=== PATIENT | male | born 1955 | race Two or more races ===

== ENCOUNTER 2022-04-30 22:23 | Inpatient (IN) | payer OTHER ==
[~2022-04-30] VITALS: Ht 165.1 cm; Wt 75.2 kg
[2022-04-30] MEDS ORDERED: SODIUM CHLORIDE 0.9% 1,000 ML IV ONE (23:30)
[2022-04-30] MEDS ORDERED: MORPHINE SULFATE 4 MG/ML SYR/VIAL IV ONE (23:30)
[2022-04-30] MEDS ORDERED: PIPERACILLIN-TAZO 4.5GM 100 ML IV ONE (23:30)
[2022-05-01] MEDS ORDERED: IOHEXOL 300 MG/ML 100ML BOTTLE IJ ONE (00:37)
[2022-05-01 01:47] LABS: Basophils # (auto) 0 10 ^3/uL (0-0.2); Eosinophils # (auto) 0 10 ^3/uL (0-0.8); Hemoglobin 9.1 g/dL (13.5-17.5); Lymphocytes # (auto) 0.1 10 ^3/uL (0.4-5.4); Mean Corpuscular Volume 77.2 fL (80.0-100.0)
[2022-05-01 01:50] LABS: Basophils % (auto) 0.4 % (0.0-2.0); Eosinophils % (auto) 0.1 % (0.0-7.0); Hematocrit 28.4 % (41.0-53.0); Lymphocytes % (auto) 1.3 % (10.0-50.0); Mean Corpuscular Hemoglobin 24.7 pg (28.0-32.0); Mean Corpuscular Hgb Conc. 31.9 g/dL (32.0-36.0); Monocytes # (auto) 0.5 10 ^3/uL (0-1.3); Monocytes % (auto) 6.3 % (0.0-12.0); Neutrophils # (auto) 6.7 10 ^3/uL (1.6-8.6); Neutrophils % (auto) 91.9 % (37.0-80.0); Red Blood Cells 3.68 10^6/uL (4.5-5.90); Red Cell Distribution Width 19.1 % (11.8-14.3); White Blood Cell 7.3 10^3/uL (4.4-10.8)
[2022-05-01 02:02] LABS: BUN/Creatinine Ratio 25.3; Calcium 7.5 mg/dL (8.5-10.1); Potassium 4.5 mmol/L (3.5-5.1)
[2022-05-01 02:04] LABS: Bilirubin, Total 1.6 mg/dL (0.2-1.0); Total Protein 6.7 g/dL (6.4-8.2)
[2022-05-01 02:06] LABS: Lactic Acid w/Reflex 3.3 mmol/L (0.4-2.0)
[2022-05-01 02:14] LABS: Urine Bacteria NONE SEEN /hpf (None Seen); Urine Blood Negative /uL (Negative); Urine Specific Gravity 1.017 (1.001-1.035); Urine WBC <1 /hpf (0 - 3)
[2022-05-01] MEDS ORDERED: SODIUM CHLORIDE 0.9% 1,000 ML IV ONE ×2 (05:15→12:00)
[2022-05-01] MEDS ORDERED: IBUPROFEN 600 MG TAB PO PRN (07:15)
[2022-05-01] MEDS ORDERED: TEMAZEPAM 15 MG CAP PO PRN (07:15)
[2022-05-01] MEDS ORDERED: SODIUM CHLORIDE 0.9% 1,000 ML IV SCH (07:15)
[2022-05-01] MEDS ORDERED: ALBUMIN 25% 100 ML IV ONE (07:15)
[2022-05-01] MEDS ORDERED: DOCUSATE SOD 100 MG CAP PO PRN (07:15)
[2022-05-01] MEDS ORDERED: DEXTROSE (50%) 50ML SYRG IV PRN (07:15)
[2022-05-01 07:57] LABS: Albumin 1.6 g/dL (3.4-5.0); Calcium 6.9 mg/dL (8.5-10.1); Potassium 5.1 mmol/L (3.5-5.1)
[2022-05-01 08:01] LABS: BUN/Creatinine Ratio 30.3; Bilirubin, Total 1.4 mg/dL (0.2-1.0); Total Protein 5.5 g/dL (6.4-8.2)
[2022-05-01 08:20] LABS: Basophils # (auto) 0 10 ^3/uL (0-0.2); Basophils % (auto) 0.3 % (0.0-2.0); Eosinophils # (auto) 0 10 ^3/uL (0-0.8); Hemoglobin 7.5 g/dL (13.5-17.5); Mean Corpuscular Volume 75.9 fL (80.0-100.0); Monocytes # (auto) 0.6 10 ^3/uL (0-1.3)
[2022-05-01 08:22] LABS: Eosinophils % (auto) 0.4 % (0.0-7.0); Hematocrit 23.6 % (41.0-53.0); Lymphocytes # (auto) 0.2 10 ^3/uL (0.4-5.4); Lymphocytes % (auto) 2.7 % (10.0-50.0); Mean Corpuscular Hemoglobin 24.1 pg (28.0-32.0); Mean Corpuscular Hgb Conc. 31.7 g/dL (32.0-36.0); Monocytes % (auto) 11.5 % (0.0-12.0); Neutrophils # (auto) 4.7 10 ^3/uL (1.6-8.6); Neutrophils % (auto) 85.1 % (37.0-80.0); Red Blood Cells 3.11 10^6/uL (4.5-5.90); White Blood Cell 5.5 10^3/uL (4.4-10.8)
[2022-05-01] MEDS: MORPHINE SULFATE INJ 2 MG/ml SYRG IV PRN ×3 (09:09→22:04)
[2022-05-01] MEDS ORDERED: OXYC-904 PO (10:07)
[2022-05-01] MEDS ORDERED: OMEP-445 PO (10:07)
[2022-05-01] MEDS ORDERED: FIN5T PO (10:07)
[2022-05-01] MEDS ORDERED: AMIL5TAB24 PO (10:07)
[2022-05-01] MEDS ORDERED: TRAZ50TA2 PO (10:07)
[2022-05-01] MEDS ORDERED: TAMS1CAP25 PO (10:07)
[2022-05-01] MEDS ORDERED: FENT50DI2 TOP (10:07)
[2022-05-01] MEDS ORDERED: ONDA-188 PO (10:07)
[2022-05-01] MEDS: FUROSEMIDE 20 MG/2 ML VIAL IV SCH (11:03)
[2022-05-01] MEDS: FAMOTIDINE (10MG/ML) 2ML VL IV SCH ×2 (11:04→22:02)
[2022-05-01] MEDS: ACCU-CHEK COMFORT CURVE STRIP VI SCH ×2 (12:13→18:52)
[2022-05-01] MEDS: InsuLIN REG 1unit/0.01ml Soln (100units/ml) SC SCH ×3 (12:17→23:57)
[2022-05-01] MEDS: fentaNYL 50MCG/HR 50 MCG/HR PAT TD SCH (12:30)
[2022-05-01] MEDS: PIPERACILLIN-TAZOB 3.375GM 100 ML IV SCH ×2 (14:56→22:02)
[2022-05-01] MEDS: TAMSULOSIN HYDROCHLORIDE 0.4 MG CAP PO SCH (18:46)
[2022-05-01 19:01] VITALS: BP 145/60
[2022-05-01 20:00] VITALS: BP 132/68
[2022-05-01 21:34] VITALS: BP 145/60
[2022-05-01] MEDS: ONDANSETRON HCL 4 MG/2 ML VIAL IV PRN (22:05)
[2022-05-02] MEDS: MORPHINE SULFATE INJ 2 MG/ml SYRG IV PRN ×3 (03:41→22:24)
[2022-05-02] MEDS: ONDANSETRON HCL 4 MG/2 ML VIAL IV PRN (03:42)
[2022-05-02 04:42] VITALS: BP 125/61
[2022-05-02 05:11] LABS: Basophils # (auto) 0 10 ^3/uL (0-0.2); Basophils % (auto) 0.3 % (0.0-2.0); Eosinophils # (auto) 0 10 ^3/uL (0-0.8); Eosinophils % (auto) 0.8 % (0.0-7.0); Hemoglobin 7.4 g/dL (13.5-17.5); Lymphocytes # (auto) 0.1 10 ^3/uL (0.4-5.4); Mean Corpuscular Hgb Conc. 32.3 g/dL (32.0-36.0); Monocytes # (auto) 0.5 10 ^3/uL (0-1.3)
[2022-05-02 05:13] LABS: Lymphocytes % (auto) 2.7 % (10.0-50.0); Mean Corpuscular Hemoglobin 24.5 pg (28.0-32.0); Mean Corpuscular Volume 75.9 fL (80.0-100.0); Monocytes % (auto) 11.4 % (0.0-12.0); Neutrophils # (auto) 3.6 10 ^3/uL (1.6-8.6); Neutrophils % (auto) 84.8 % (37.0-80.0); Red Blood Cells 3.03 10^6/uL (4.5-5.90); Red Cell Distribution Width 18.7 % (11.8-14.3); White Blood Cell 4.2 10^3/uL (4.4-10.8)
[2022-05-02 05:23] LABS: Albumin 1.9 g/dL (3.4-5.0); Calcium 7.3 mg/dL (8.5-10.1); Potassium 4.4 mmol/L (3.5-5.1)
[2022-05-02 05:27] LABS: BUN/Creatinine Ratio 31.9; Bilirubin, Total 1.3 mg/dL (0.2-1.0); Total Protein 5.9 g/dL (6.4-8.2)
[2022-05-02] MEDS: InsuLIN REG 1unit/0.01ml Soln (100units/ml) SC SCH ×4 (06:30→23:48)
[2022-05-02] MEDS: PIPERACILLIN-TAZOB 3.375GM 100 ML IV SCH ×3 (06:31→22:23)
[2022-05-02] MEDS: ACCU-CHEK COMFORT CURVE STRIP VI SCH ×5 (06:31→23:45)
[2022-05-02 08:00] VITALS: BP 142/64
[2022-05-02] MEDS ORDERED: VANCOMYCIN 1GM/250ML 250 ML IV ONE (08:30)
[2022-05-02] MEDS ORDERED: VANCOMYCIN PER PHARMACY 0 MG IV SCH (08:30)
[2022-05-02 09:03] VITALS: BP 142/64
[2022-05-02] MEDS: FAMOTIDINE (10MG/ML) 2ML VL IV SCH ×2 (09:30→22:22)
[2022-05-02] MEDS: FUROSEMIDE 20 MG/2 ML VIAL IV SCH (09:31)
[2022-05-02 12:30] VITALS: BP 138/70
[2022-05-02] MEDS: BACLOFEN 10 MG TAB PO SCH ×2 (14:06→22:23)
[2022-05-02 16:45] VITALS: BP 126/73
[2022-05-02] MEDS: TAMSULOSIN HYDROCHLORIDE 0.4 MG CAP PO SCH (17:17)
[2022-05-02] MEDS: VANCOMYCIN 1GM/250ML 250 ML IV SCH (20:53)
[2022-05-02 21:39] VITALS: BP 120/64
[2022-05-03 05:29] LABS: Hematocrit 25.9 % (41.0-53.0); Hemoglobin 8.3 g/dL (13.5-17.5); Mean Corpuscular Hemoglobin 24.5 pg (28.0-32.0); Mean Corpuscular Hgb Conc. 32.2 g/dL (32.0-36.0); Mean Corpuscular Volume 76.3 fL (80.0-100.0); Red Blood Cells 3.39 10^6/uL (4.5-5.90); Red Cell Distribution Width 19.3 % (11.8-14.3); White Blood Cell 4.7 10^3/uL (4.4-10.8)
[2022-05-03] MEDS: BACLOFEN 10 MG TAB PO SCH ×3 (05:35→22:00)
[2022-05-03] MEDS: ACCU-CHEK COMFORT CURVE STRIP VI SCH ×3 (05:35→17:50)
[2022-05-03] MEDS: PIPERACILLIN-TAZOB 3.375GM 100 ML IV SCH ×2 (05:35→16:12)
[2022-05-03] MEDS: InsuLIN REG 1unit/0.01ml Soln (100units/ml) SC SCH ×3 (05:38→17:53)
[2022-05-03 05:41] LABS: Potassium 4.1 mmol/L (3.5-5.1)
[2022-05-03] MEDS: MORPHINE SULFATE INJ 2 MG/ml SYRG IV PRN ×2 (05:41→21:05)
[2022-05-03 05:46] LABS: Band Neutrophils % (manual) 0; Basophils % (manual) 0 (0.0-2.0); Blast Cells 0; Metamyelocytes % 0; Myelocytes % 0; Promyelocytes % 0; Reactive Lymphocytes 0
[2022-05-03 05:50] LABS: BUN/Creatinine Ratio 34.3; Calcium 7.6 mg/dL (8.5-10.1)
[2022-05-03 06:00] LABS: Bilirubin, Total 1.7 mg/dL (0.2-1.0); Total Protein 6.3 g/dL (6.4-8.2)
[2022-05-03 07:21] LABS: Eosinophils % (manual) 1 (0-7); Lymphocytes % (manual) 4 (10.0-50.0); Monocytes % (manual) 7 (0-12)
[2022-05-03 08:00] VITALS: BP 137/68
[2022-05-03 09:00] VITALS: BP 137/68
[2022-05-03] MEDS: FAMOTIDINE (10MG/ML) 2ML VL IV SCH ×2 (09:39→22:14)
[2022-05-03] MEDS: VANCOMYCIN 1GM/250ML 250 ML IV SCH ×2 (09:39→22:15)
[2022-05-03] MEDS: FUROSEMIDE 20 MG/2 ML VIAL IV SCH (09:41)
[2022-05-03 13:00] VITALS: BP 129/55
[2022-05-03] MEDS ORDERED: LORazepam 2MG/ML-1ML VIAL IV ONE (13:15)
[2022-05-03] MEDS: ONDANSETRON HCL 4 MG/2 ML VIAL IV PRN ×2 (13:57→20:51)
[2022-05-03] MEDS ORDERED: FUROSEMIDE 40 MG/4 ML VIAL IV ONE (16:45)
[2022-05-03 16:46] VITALS: BP 133/45
[2022-05-03] MEDS ORDERED: FUROSEMIDE 40 MG/4 ML VIAL ONE (16:49)
[2022-05-03] MEDS: TAMSULOSIN HYDROCHLORIDE 0.4 MG CAP PO SCH (18:00)
[2022-05-03] MEDS ORDERED: SODIUM CHLORIDE 0.9% 1,000 ML IV ONE (18:45)
[2022-05-03 19:23] LABS: Eosinophils # (auto) 0 10 ^3/uL (0-0.8); Hemoglobin 8.4 g/dL (13.5-17.5); Lymphocytes # (auto) 0.1 10 ^3/uL (0.4-5.4); Lymphocytes % (auto) 1.6 % (10.0-50.0); Monocytes # (auto) 0.3 10 ^3/uL (0-1.3)
[2022-05-03 19:27] LABS: Basophils # (auto) 0 10 ^3/uL (0-0.2); Basophils % (auto) 0.7 % (0.0-2.0); Eosinophils % (auto) 0.1 % (0.0-7.0); Hematocrit 27.1 % (41.0-53.0); Mean Corpuscular Hemoglobin 24.3 pg (28.0-32.0); Mean Corpuscular Volume 78.3 fL (80.0-100.0); Monocytes % (auto) 5.1 % (0.0-12.0); Neutrophils # (auto) 5.7 10 ^3/uL (1.6-8.6); Neutrophils % (auto) 92.5 % (37.0-80.0); Red Blood Cells 3.46 10^6/uL (4.5-5.90); White Blood Cell 6.2 10^3/uL (4.4-10.8)
[2022-05-03 19:32] LABS: Red Cell Distribution Width 20.1 % (11.8-14.3)
[2022-05-03 19:40] LABS: Albumin 2.1 g/dL (3.4-5.0); Calcium 7.8 mg/dL (8.5-10.1); Potassium 3.7 mmol/L (3.5-5.1)
[2022-05-03 19:43] LABS: BUN/Creatinine Ratio 26.2; Bilirubin, Total 1.8 mg/dL (0.2-1.0); Total Protein 6.7 g/dL (6.4-8.2)
[2022-05-03 20:00] VITALS: BP 156/89
[2022-05-03 20:19] LABS: Lactic Acid w/Reflex 2.1 mmol/L (0.4-2.0)
[2022-05-04] VITALS (17 sets, daily range): BP systolic 120–148; BP diastolic 51–66
[2022-05-04] MEDS ORDERED: KETOROLAC TROMETH 30 MG/ML 1ML VIAL IV ONE
[2022-05-04] MEDS: ACCU-CHEK COMFORT CURVE STRIP VI SCH ×4 (00:39→18:09)
[2022-05-04] MEDS: InsuLIN REG 1unit/0.01ml Soln (100units/ml) SC SCH ×4 (00:40→18:11)
[2022-05-04] MEDS: PIPERACILLIN-TAZOB 3.375GM 100 ML IV SCH ×2 (01:12→06:00)
[2022-05-04 04:52] LABS: Basophils # (auto) 0 10 ^3/uL (0-0.2); Basophils % (auto) 0.2 % (0.0-2.0); Eosinophils # (auto) 0 10 ^3/uL (0-0.8); Eosinophils % (auto) 0.1 % (0.0-7.0); Hemoglobin 7.8 g/dL (13.5-17.5); Lymphocytes # (auto) 0.1 10 ^3/uL (0.4-5.4); Monocytes # (auto) 0.5 10 ^3/uL (0-1.3); Nucleated Red Blood Cells % 0.1 %
[2022-05-04] MEDS: BACLOFEN 10 MG TAB PO SCH ×3 (04:53→21:40)
[2022-05-04 04:54] LABS: Hematocrit 25.1 % (41.0-53.0); Lymphocytes % (auto) 2.4 % (10.0-50.0); Mean Corpuscular Hemoglobin 24.3 pg (28.0-32.0); Mean Corpuscular Hgb Conc. 30.9 g/dL (32.0-36.0); Mean Corpuscular Volume 78.6 fL (80.0-100.0); Monocytes % (auto) 11.3 % (0.0-12.0); Neutrophils # (auto) 3.5 10 ^3/uL (1.6-8.6); Red Cell Distribution Width 19.7 % (11.8-14.3)
[2022-05-04 05:10] LABS: Albumin 1.9 g/dL (3.4-5.0); Potassium 3.8 mmol/L (3.5-5.1)
[2022-05-04 05:16] LABS: BUN/Creatinine Ratio 31.6; Bilirubin, Total 1.5 mg/dL (0.2-1.0); Calcium 7.3 mg/dL (8.5-10.1); Total Protein 5.7 g/dL (6.4-8.2)
[2022-05-04] MEDS: VANCOMYCIN 1GM/250ML 250 ML IV SCH ×2 (09:42→20:30)
[2022-05-04] MEDS: FUROSEMIDE 20 MG/2 ML VIAL IV SCH (09:42)
[2022-05-04] MEDS: FAMOTIDINE (10MG/ML) 2ML VL IV SCH ×2 (09:42→21:36)
[2022-05-04] MEDS ORDERED: cefTRIAXone 1GM/50ML D5W 50 ML IV ONE (10:30)
[2022-05-04] MEDS ORDERED: TPN PER PHARMACY 0 ML IV SCH ×2 (10:30→20:00)
[2022-05-04] MEDS ORDERED: DEXTROSE (50%) 50ML SYRG IV PRN (10:45)
[2022-05-04] MEDS ORDERED: CLINIMIX PER PHARMACY 0 ML IV SCH (10:45)
[2022-05-04 12:06] LABS: Phosphorus 2.4 mg/dL (2.5-4.90)
[2022-05-04] MEDS ORDERED: AMINO ACID INFUSION IN D10W 1,000 ML IV NR (12:45)
[2022-05-04] MEDS: ONDANSETRON HCL 4 MG/2 ML VIAL IV PRN (12:55)
[2022-05-04] MEDS: fentaNYL 50MCG/HR 50 MCG/HR PAT TD SCH (13:10)
[2022-05-04] MEDS ORDERED: SODIUM PHOSP 20MEQ(15MMOL) IN NS 100 ML IV ONE (13:45)
[2022-05-04] MEDS: TAMSULOSIN HYDROCHLORIDE 0.4 MG CAP PO SCH (17:57)
[2022-05-04] MEDS: MORPHINE SULFATE INJ 2 MG/ml SYRG IV PRN (18:14)
[2022-05-04 19:13] LABS: Hemoglobin 7.8 g/dL (13.5-17.5)
[2022-05-04] MEDS ORDERED: TPN PER PHARMACY IV NR ×12 (20:00)
[2022-05-04] MEDS: INSULIN LANTUS (GLARGINE) 1 /0.01ml (100units/ml) SC SCH (23:00)
[2022-05-05] VITALS (14 sets, daily range): BP systolic 118–135; BP diastolic 36–65
[2022-05-05] MEDS: InsuLIN REG 1unit/0.01ml Soln (100units/ml) SC SCH ×4 (00:25→19:06)
[2022-05-05] MEDS: ACCU-CHEK COMFORT CURVE STRIP VI SCH ×4 (00:26→18:52)
[2022-05-05] MEDS: MORPHINE SULFATE INJ 2 MG/ml SYRG IV PRN ×4 (00:37→22:08)
[2022-05-05] MEDS: BACLOFEN 10 MG TAB PO SCH ×3 (06:00→22:00)
[2022-05-05 06:04] LABS: Albumin 1.8 g/dL (3.4-5.0); BUN/Creatinine Ratio 43.5; Calcium 7.3 mg/dL (8.5-10.1); Magnesium 2.2 mg/dL (1.6-2.6); Potassium 3.3 mmol/L (3.5-5.1)
[2022-05-05 06:06] LABS: Phosphorus 2.9 mg/dL (2.5-4.90); Total Protein 5.9 g/dL (6.4-8.2)
[2022-05-05] MEDS: VANCOMYCIN 1GM/250ML 250 ML IV SCH ×2 (06:10→17:27)
[2022-05-05 06:34] LABS: Basophils # (auto) 0 10 ^3/uL (0-0.2); Eosinophils # (auto) 0.1 10 ^3/uL (0-0.8); Eosinophils % (auto) 1.7 % (0.0-7.0); Hemoglobin 7.6 g/dL (13.5-17.5); Lymphocytes # (auto) 0.2 10 ^3/uL (0.4-5.4); Mean Corpuscular Hgb Conc. 32.8 g/dL (32.0-36.0); Monocytes # (auto) 0.3 10 ^3/uL (0-1.3); Neutrophils # (auto) 3.3 10 ^3/uL (1.6-8.6)
[2022-05-05 06:36] LABS: Basophils % (auto) 0.1 % (0.0-2.0); Hematocrit 23.2 % (41.0-53.0); Mean Corpuscular Hemoglobin 24.9 pg (28.0-32.0); Monocytes % (auto) 8.5 % (0.0-12.0); Neutrophils % (auto) 85.7 % (37.0-80.0); Nucleated Red Blood Cells % 0.1 %; Red Blood Cells 3.05 10^6/uL (4.5-5.90); Red Cell Distribution Width 19.8 % (11.8-14.3); White Blood Cell 3.8 10^3/uL (4.4-10.8)
[2022-05-05 09:28] LABS: INR 1.29 (0.9-1.15); Partial Thromboplastin Time 31.6 sec (24.6-33.4)
[2022-05-05] MEDS: cefTRIAXone 1GM/50ML D5W 50 ML IV SCH (09:52)
[2022-05-05] MEDS: FUROSEMIDE 20 MG/2 ML VIAL IV SCH (09:56)
[2022-05-05] MEDS: FAMOTIDINE (10MG/ML) 2ML VL IV SCH ×2 (09:56→22:08)
[2022-05-05] MEDS ORDERED: POTASSIUM PHOSP 26.4MEQ(18MMOL) IN NS 100 ML IV ONE (10:00)
[2022-05-05] MEDS ORDERED: LIDOCAINE 1% (LOCAL ANESTH.) PF 5ml SDV ID ONE (13:45)
[2022-05-05] MEDS: ONDANSETRON HCL 4 MG/2 ML VIAL IV PRN ×2 (17:24→22:07)
[2022-05-05] MEDS: TAMSULOSIN HYDROCHLORIDE 0.4 MG CAP PO SCH (18:00)
[2022-05-05] MEDS: TPN PER PHARMACY IV NR ×13 (20:46)
[2022-05-05 21:52] LABS: Hemoglobin 7.3 g/dL (13.5-17.5)
[2022-05-05 21:54] LABS: Hematocrit 23.6 % (41.0-53.0)
[2022-05-05] MEDS: SODIUM CHLOR 0.9% PF (SALINE LOCK) 10ML VIAL/SYR IV SCH (22:09)
[2022-05-05] MEDS: INSULIN LANTUS (GLARGINE) 1 /0.01ml (100units/ml) SC SCH (22:20)
[2022-05-06] VITALS (15 sets, daily range): BP systolic 120–132; BP diastolic 49–86
[2022-05-06] MEDS: ACCU-CHEK COMFORT CURVE STRIP VI SCH ×4 (00:31→17:40)
[2022-05-06] MEDS: InsuLIN REG 1unit/0.01ml Soln (100units/ml) SC SCH ×4 (00:32→17:41)
[2022-05-06] MEDS: VANCOMYCIN 1GM/250ML 250 ML IV SCH ×3 (02:20→20:15)
[2022-05-06] MEDS: MORPHINE SULFATE INJ 2 MG/ml SYRG IV PRN ×4 (02:25→21:55)
[2022-05-06] MEDS: ONDANSETRON HCL 4 MG/2 ML VIAL IV PRN ×4 (02:33→21:53)
[2022-05-06 05:37] LABS: Albumin 1.7 g/dL (3.4-5.0); BUN/Creatinine Ratio 48.3; Bilirubin, Total 1.2 mg/dL (0.2-1.0); Calcium 6.9 mg/dL (8.5-10.1); Magnesium 2.1 mg/dL (1.6-2.6); Phosphorus 3.1 mg/dL (2.5-4.90); Total Protein 5.8 g/dL (6.4-8.2)
[2022-05-06 05:38] LABS: Basophils # (auto) 0 10 ^3/uL (0-0.2); Eosinophils # (auto) 0.1 10 ^3/uL (0-0.8); Lymphocytes # (auto) 0.2 10 ^3/uL (0.4-5.4); Monocytes # (auto) 0.3 10 ^3/uL (0-1.3); Neutrophils # (auto) 3.1 10 ^3/uL (1.6-8.6); Nucleated Red Blood Cells % 0.2 %; White Blood Cell 3.7 10^3/uL (4.4-10.8)
[2022-05-06 05:40] LABS: Basophils % (auto) 0.7 % (0.0-2.0); Eosinophils % (auto) 3.2 % (0.0-7.0); Hematocrit 23.5 % (41.0-53.0); Hemoglobin 7.5 g/dL (13.5-17.5); Lymphocytes % (auto) 4.6 % (10.0-50.0); Mean Corpuscular Hemoglobin 24.7 pg (28.0-32.0); Mean Corpuscular Hgb Conc. 32.1 g/dL (32.0-36.0); Mean Corpuscular Volume 76.8 fL (80.0-100.0); Neutrophils % (auto) 84.5 % (37.0-80.0); Red Blood Cells 3.06 10^6/uL (4.5-5.90); Red Cell Distribution Width 19.4 % (11.8-14.3)
[2022-05-06] MEDS: BACLOFEN 10 MG TAB PO SCH ×3 (06:00→21:56)
[2022-05-06 08:25] LABS: Hemoglobin 7.5 g/dL (13.5-17.5)
[2022-05-06 08:27] LABS: Hematocrit 23.3 % (41.0-53.0)
[2022-05-06] MEDS: cefTRIAXone 1GM/50ML D5W 50 ML IV SCH (08:41)
[2022-05-06] MEDS: FUROSEMIDE 20 MG/2 ML VIAL IV SCH (10:30)
[2022-05-06] MEDS: FAMOTIDINE (10MG/ML) 2ML VL IV SCH ×2 (10:30→21:53)
[2022-05-06] MEDS: SODIUM CHLOR 0.9% PF (SALINE LOCK) 10ML VIAL/SYR IV SCH ×2 (10:35→21:56)
[2022-05-06 11:46] LABS: Hepatitis B Surface Antibody Negative (Negative)
[2022-05-06 12:08] LABS: Hepatitis A Total Antibody Negative (Negative)
[2022-05-06] MEDS ORDERED: VANCOMYCIN 1GM/250ML 250 ML IV SCH ×2 (13:45→14:00)
[2022-05-06 16:01] LABS: Hepatitis C Antibody Positive (Negative)
[2022-05-06] MEDS: TAMSULOSIN HYDROCHLORIDE 0.4 MG CAP PO SCH (17:41)
[2022-05-06] MEDS: TPN PER PHARMACY IV NR ×13 (19:59)
[2022-05-06] MEDS ORDERED: TPN PER PHARMACY IV NR ×13 (20:00)
[2022-05-06] MEDS: INSULIN LANTUS (GLARGINE) 1 /0.01ml (100units/ml) SC SCH (22:13)
[2022-05-07] VITALS (9 sets, daily range): BP systolic 107–128; BP diastolic 52–60
[2022-05-07] MEDS: ACCU-CHEK COMFORT CURVE STRIP VI SCH ×4 (00:27→18:17)
[2022-05-07] MEDS: InsuLIN REG 1unit/0.01ml Soln (100units/ml) SC SCH ×4 (00:27→18:18)
[2022-05-07] MEDS: VANCOMYCIN 1GM/250ML 250 ML IV SCH (04:38)
[2022-05-07] MEDS: BACLOFEN 10 MG TAB PO SCH ×3 (05:50→22:20)
[2022-05-07 06:57] LABS: Potassium 4.2 mmol/L (3.5-5.1)
[2022-05-07 07:06] LABS: Albumin 1.6 g/dL (3.4-5.0); BUN/Creatinine Ratio 54.9; Calcium 6.6 mg/dL (8.5-10.1); Magnesium 2.4 mg/dL (1.6-2.6); Phosphorus 3.2 mg/dL (2.5-4.90)
[2022-05-07] MEDS: cefTRIAXone 1GM/50ML D5W 50 ML IV SCH (09:14)
[2022-05-07] MEDS: MORPHINE SULFATE INJ 2 MG/ml SYRG IV PRN ×3 (10:41→20:51)
[2022-05-07] MEDS: FAMOTIDINE (10MG/ML) 2ML VL IV SCH ×2 (10:41→22:19)
[2022-05-07] MEDS: FUROSEMIDE 20 MG/2 ML VIAL IV SCH (10:41)
[2022-05-07] MEDS: ONDANSETRON HCL 4 MG/2 ML VIAL IV PRN ×3 (10:41→20:49)
[2022-05-07] MEDS: SODIUM CHLOR 0.9% PF (SALINE LOCK) 10ML VIAL/SYR IV SCH ×2 (10:42→22:20)
[2022-05-07] MEDS: LINEZOLID 600MG/300ML 300 ML IV SCH ×2 (13:11→22:00)
[2022-05-07] MEDS: fentaNYL 50MCG/HR 50 MCG/HR PAT TD SCH (14:43)
[2022-05-07] MEDS: TAMSULOSIN HYDROCHLORIDE 0.4 MG CAP PO SCH (18:00)
[2022-05-07] MEDS ORDERED: TPN PER PHARMACY IV NR ×13 (20:00)
[2022-05-07] MEDS: INSULIN LANTUS (GLARGINE) 1 /0.01ml (100units/ml) SC SCH (22:23)
== END 2022-05-07 22:42 | disposition short-term general hospital (02) | DRG 871 ==
LOC: ER 22:23 → EDBD 22:23 → OVERFLOW 05-01 07:24 → CENTRAL 05-01 18:44 → DOU IN ICU 05-03 17:50
PROVIDERS: ADMIT Nurse Practitioner Family; ATTEND Family Medicine
DX: A41.9 Sepsis, unspecified organism (principal); E43 Unspecified severe protein-calorie malnutrition; R65.21 Severe sepsis with septic shock; K65.9 Peritonitis, unspecified; L03.90 Cellulitis, unspecified; K63.2 Fistula of intestine; D61.818 Other pancytopenia; K56.609 Unspecified intestinal obstruction, unspecified as to partial versus complete obstruction; K56.7 Ileus, unspecified; D63.8 Anemia in other chronic diseases classified elsewhere; D69.6 Thrombocytopenia, unspecified; E11.65 Type 2 diabetes mellitus with hyperglycemia; E88.09 Other disorders of plasma-protein metabolism, not elsewhere classified; K74.60 Unspecified cirrhosis of liver; K82.8 Other specified diseases of gallbladder; Z20.822 Contact with and (suspected) exposure to COVID-19; R16.1 Splenomegaly, not elsewhere classified; R79.89 Other specified abnormal findings of blood chemistry; R74.8 Abnormal levels of other serum enzymes; B95.8 Unspecified staphylococcus as the cause of diseases classified elsewhere; B19.20 Unspecified viral hepatitis C without hepatic coma; Z68.27 Body mass index [BMI] 27.0-27.9, adult
CPT/HCPCS: 36415; 36569; 36600; 71045; 74181; 76705; 80053; 80202; 81001; 82140; 82805; 82962; 83036; 83605; 83735; 84100; 84478; 84484; 85007; 85014; 85018; 85025; 85027; 85610; 85730; 86704; 86706; 86708; 86803; 86850; 86900; 86901; 87040; 87077; 87186; 87205; 87340; 93005; 93306; 96361; 96365; 96366; 96367; 96375; 99291; G0378; J0696; J1815; J1885; J2405; J2543; J3490; J7131; P9047